=== PATIENT | female | born 1955 | race Caucasian/White ===

== ENCOUNTER 2016-09-24 22:48 | Emergency (ER) | payer OTHER ==
[~2016-09-24] VITALS: Ht 167.6 cm; Wt 136.1 kg
[~2016-09-24 22:48] MED LIST: ADVAIR DISKUS 21 DSK INH; ALBUTEROL SULFAT3 M1 INH; ATORVASTATIN CA10 MG PO; ATORVASTATIN CA20 MG PO; BACTRIM DS 8001 TAB PO; BENADRYL ALLERG25 M1 PO; BISACODYL10 MG PR; CALCIUM CARBO1250 MG PO; CALCIUM500 MG PO; CEPHALEXIN500 MG PO; CLOPIDOGREL75 MG PO; FLEET ENEMA 131 UNIT PR; FUROSEMIDE40 MG PO; HUMULIN N KW100 U/ML SC; LEVEMIR 10100 UNITS/ SC; LEVEMIR100 U/ML SC; LIORESAL 10MG T10 MG PO; LISINOPRIL HCTZ1 TAB PO; LISINOPRIL20 MG PO; LYRICA150 MG PO; MASON NATURAL325 MG PO; MILK OF MAGNESI30 ML PO; MUCINEX1200 MG PO; MULTIVITAMIN1 TAB PO; NOVOLOG 10300 UNITS/ SC; NOVOLOG100 U/ML SC; OMEPRAZOLE D/R20 MG PO; OMEPRAZOLE40 MG PO; OXYCODONE HCL15 MG PO; OXYCODONE HYDRO15 MG PO; OXYCONTIN (MONO40 MG PO; OXYCONTIN20 MG PO; POLYTRIM O200 GTT/BO OPH; POTASSIUM CHLO10 ME1 PO; PRAMIPEXOLE D0.25 MG PO; PRILOSEC40 MG PO; PROAIR HFA0.09 MG/Ac INH; RIFAMPIN300 MG PO; SAVELLA25 MG PO; SENNA CON/DOCUS1 TAB PO; TYLENOL ARTHRI650 MG PO; VANCOMYCIN HYDRO1 GM IV; VICODIN5-300 PO; VITAMIN D50000 IU PO; ZOFRAN 8MG8 MG PO
[2016-09-24 23:32] VITALS: BP 175/72
--- NOTE | 2016-09-25 00:18 | ED SKIN/ALLERGY COMPLAINT ---
History of Present Illness General Chief Complaint: General Adult Stated Complaint: SKIN TEAR Source: patient Exam Limitations: no limitations Vital Signs & Intake/Output Vital Signs & Intake/Output Vital Signs Date Time Temp Pulse Resp B/P Pulse O2 O2 Flow FiO2 Ox Delivery Rate 09/24 2332 95.7 80 16 175/72 96 Room Air ED Intake and Output 09/25 0000 09/24 1200 Intake Total Output Total Balance Patient 300 lb Weight Allergies Coded Allergies: MDX - DT (diphtheria toxoid - tetan (From TETANUS AND DIPHTHERIA TOXOIDS A...) ( Severe, SWELLING/HIVES 08/17/15) MDX - HHaj-XtuU-NXW (Pediarix) (From TETANUS AND DIPHTHERIA TOXOIDS A...) ( Severe, SWELLING/HIVES 08/17/15) MDX - DTap-IPV (Kinrix) (From TETANUS AND DIPHTHERIA TOXOIDS A...) (Severe, SWELLING/HIVES 08/17/15) MDX - DTap-IPV/Hib (Pentacel) (From TETANUS AND DIPHTHERIA TOXOIDS A...) (Severe , SWELLING/HIVES 08/17/15) MDX - DTap/Hib (TriHIBit) (From TETANUS AND DIPHTHERIA TOXOIDS A...) (Severe, SWELLING/HIVES 08/17/15) MDX - Dtap (Daptacel, Infanrix, Tri (From TETANUS AND DIPHTHERIA TOXOIDS A...) ( Severe, SWELLING/HIVES 08/17/15) MDX - Insulin Human Regular (From HUMULIN R) (Severe, GI DISTRESS 08/17/15) PER PT. MDX - Nsaid (Nsaid) (Severe, SWELLING, HIVES, THROAT CLOSING 08/17/15) MDX - Td (Decavac) (From TETANUS AND DIPHTHERIA TOXOIDS A...) (Severe, SWELLING/ HIVES 08/17/15) MDX - Tdap (Boostrix, Adacel) (From TETANUS AND DIPHTHERIA TOXOIDS A...) (Severe , SWELLING/HIVES 08/17/15) MDX - Tetanus Toxoid (From TETANUS AND DIPHTHERIA TOXOIDS A...) (Severe, SWELLING/HIVES 08/17/15) MDX - Aspirin (UNKNOWN 08/17/15) MDX - Bee Venom (BEE VENOM) (UNKNOWN 01/17/16) MDX - Penicillin G (From Penicillin G Potassium) (ANAPHYLAXIS 08/17/15) MDX - Prednisone (PREDNISONE) (UNKNOWN 08/17/15) Reconcile Medications Acetaminophen (Tylenol Arthritis) [address] 1 TAB PO Q4H PRN PAIN/TEMP>101 ( Reported) Albuterol Sulfate 3 ML NEB 3 ML INH 4 TIMES/DAY DYSPNEA (Reported) Albuterol Sulfate (Proair Hfa) 0.09 MG/Actuation RADHA 1-2 PUFF INH Q6H PRN SOB/ WHEEZE (Reported) Atorvastatin Calcium (Lipitor) 20 MG TABLET 1 TAB PO DAILY CHOLESTEROL ( Reported) Baclofen (Lioresal) 10 MG TABLET 1 TAB PO TID MUSCLE SPASMS (Reported) Bisacodyl 10 MG SUP 1 SUPP [place] PRN CONSTIPATION (Reported) Calcium Carbonate 500 MG CALCIUM (1,250 MG) TABLET 1 TAB PO DAILY SUPPLEMENT (Reported) CLOPIDOGREL BISULFATE (Clopidogrel) 75 MG TABLET 1 TAB PO Q48 BLOOD THINNER ( Reported) DIPHENHYDRAMINE HCL (Benadryl) 25 MG CAPSULE 1 CAP PO Q6H PRN ITCHING ( Reported) Docusate Sodium/Senna (Senna S) 50 MG/8.6 MG TAB 1 TAB PO BID CONSTIPATION ( Reported) ERGOCALCIFEROL (VITAMIN D2) (Vitamin D2) 50,000 UNIT CAPSULE 1 CAP PO ONCE A WEEK SUPPLEMENT (Reported) Ferrous Sulfate 325 MG (65 MG IRON) TABLET 1 TAB PO BID SUPPLEMENT (Reported) Fleet Enema (Fleet Enema 135 Ml) 19 GRAM-7 GRAM/118 ML ENEMA 1 UNIT [place] DAILY NEEDED PRN CONSTIPATION (Reported) FLUTICASONE/SALMETEROL (Advair 250-50 Diskus) 250 MCG-50 MCG/DOSE BLST.W.DEV 1 PUFF INH BID ASTHMA (Reported) Furosemide 40 MG TABLET 1 TAB PO DAILY DIURETIC (Reported) Insulin Aspart, Recombinant (Novolog) 100 U/ML JOEL 0 UNITS SC TIDAC/HS GLUCOSE CONTROL MEAL TIME SLIDING SCALE BLOOD SUGAR # OF UNITS < 80 TAKE GLUCOSE 80-150 8 UNITS 151-200 10 UNITS 201-250 12 UNITS 251-300 14 UNITS 301-350 16 UNITS 351-400 18 UNITS >400 20 UNITS and call MD BED TIME SCALE <251 NO INSULIN 251-300 2 UNITS 301-350 3 UNITS 351-400 4 UNITS Insulin Detemir (Levemir) 100 UNIT/ML VIAL 40 UNITS SC BID DIABETES Lisinopril 20 MG TABLET 1 TAB PO DAILY BP (Reported) Magnesium Hydroxide (Milk Of Magnesia 30ML) 400 MG/5 ML ORAL.SUSP 30 ML PO DAILY NEEDED PRN CONSTIPATION (Reported) IF NO BM FOR 3 DAYS MILNACIPRAN HCL (Savella) 25 MG TABLET 1 TAB PO BID FIBROMYALGIA (Reported) Multivitamin (Multiple Vitamins) 1 EACH TABLET 1 TAB PO DAILY SUPPLEMENT ( Reported) Omeprazole (Prilosec) 40 MG ECC 1 TAB PO BID GERD (Reported) Ondansetron (Zofran 8MG) 8 MG TABLET 1 TAB PO SEE ADMIN CRITERIA PRIOR TO IV (Reported) OXYCODONE HCL (Oxycodone HCl) 15 MG TABLET 1 TAB PO AT BEDTIME PAIN (Reported ) Reason to Stop at ADM: CHANGED TO IV DILAUDID Oxycodone HCL (Oxycontin (Monograph Only)) 40 MG TAB.ER.12H 1 TAB PO BID PAIN (Reported) Reason to Stop at ADM: CHANGED TO IV DILAUDID Oxycodone Hydrochloride 15 MG TAB 1 TAB PO Q4P PRN PAIN (Reported) Please hold for sedation and consider using this PRN if the pain is well controlled. Polytrim (Polytrim Eye Drops) 200 GTT/BOT GTT 1 GTT OPH Q6 CORNEAL ABRASION Potassium Chloride 10 MEQ TABLET.ER 1 TAB PO DAILY SUPPLEMENT (Reported) PRAMIPEXOLE DI-HCL (Pramipexole Dihydrochloride) 0.25 MG TABLET 1 TAB PO BID RESTLESS LEGS SYNDROME (Reported) Pregabalin (Lyrica) 150 MG CAPSULE 1 CAP PO TID FIBROMYALGIA (Reported) Rifampin 300 MG CAPSULE 1 CAP PO BID INFECTION (Reported) VANCOMYCIN HCL (Vancomycin Hydrochloride) 1 GRAM VIAL 1,000 MG IV DAILY INFECTION MIX IN 250 MLS OF NORMAL SALINE AND RUN OVER 4 HOURS Triage Note: 61yo FEMALE TO TRIAGE W/CO SKIN TEAR TO R FOREARM SP CATCHING IT ON CARSEAT TONITE. Triage Nurses Notes Reviewed? yes HPI: THIS PATIENT is a 61-year-old female with past medical history diabetes presented to the emergency department today for evaluation of a left forearm skin tear. The patient reported that she was putting seatback at her car fell forward scraping her arm. She reported that she is having 7 out of 10, throbbing, aching pain in her forearm which is nonradiating and constant. It is worse with palpation. No palliative factors. The patient denied being on any blood thinners. He denied any wrist or elbow pain. No numbness or tingling in her extremity. (YAS LEES PA-C) Past History Travel History Traveled to [place] past 21 day No Medical History Any Pertinent Medical History? 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 No (YAS LEES PA-C) Review of Systems Review of Systems Constitutional: Reports: no symptoms. EENTM: Reports: no symptoms. Respiratory: Reports: no symptoms. Cardiovascular: Reports: no symptoms. GI: Reports: no symptoms. Musculoskeletal: Reports: no symptoms. Skin: Reports: see HPI. Neurological/Psychological: Reports: no symptoms. All Other Systems: Reviewed and Negative (YAS LEES PA-C) Physical Exam Physical Exam General Appearance: well developed/nourished, no apparent distress, alert, awake Comments: Well-developed well-nourished person in no acute distress HEENT: Head normocephalic, moist mucous membranes Neck: Supple, no lymphadenopathy Back: Normal inspection Respiratory: No respiratory distress. Speaking in full sentences Extremities: No edema, full range of motion Neuro: Alert and oriented x3 Psych: Mood affect normal, normal memory normal judgment. Skin: Warm and dry, no rash on exposed skin. Approximately 3.5 cm greatest diameter skin tear to the left forearm with no surrounding erythema or edema. Mild amount of stranding ecchymosis. No active bleeding. Tender to palpation (YAS LEES PA-C) Progress Differential Diagnosis: abscess/cellulitis, contact dermatitis, SKIN LACERATION, SKIN TEAR, SKIN AVULSION Plan of Care: This patient is a 61-year-old female who presented to the emergency department today for evaluation of the skin tear. Skin tear noted to the left forearm. The wound was prepped with Betadine and irrigated extensively with normal saline. 4 Steri-Strips were applied to the wound to secure the skin flap. Sterile dressing was applied. Patient tolerated the procedure well. No signs of infection. Stable for discharge home. (YAS LEES PA-C) Departure Departure Disposition: HOME OR SELF CARE Condition: Stable Clinical Impression Primary Impression: Skin tear Referrals: JENNIFER JENKINS,BREANNA Murphy (PCP/Family) Additional Instructions: Keep the wound site clean and dry. Let the Steri-Strips fall off on their own. Follow-up with your primary care physician. Return for any worsening symptoms or concerns. Departure Forms: Customer Survey General Discharge Information (YAS LEES PA-C) PA/REPAIR SPECIALIST Co-Sign Statement Statement: ED Attending supervision documentation- [] I saw and evaluated the patient. I have also reviewed all the pertinent lab results and diagnostic results. I agree with the findings and the plan of care as documented in the PA's/REPAIR SPECIALIST's documentation. x] I have reviewed the ED Record and agree with the PA's/REPAIR SPECIALIST's documentation. [] Additions or exceptions (if any) to the PAs/REPAIR SPECIALIST's note and plan are summarized below: [] (BROOKS JENKINS,TANJA Zendejas)
== END 2016-09-25 00:31 ==
LOC: ERH 22:48
DX: S51.812A Laceration without foreign body of left forearm, initial encounter (principal); X58.XXXA Exposure to other specified factors, initial encounter
CPT/HCPCS: 99282

== ENCOUNTER 2016-11-29 22:26 | Emergency (ER) | payer OTHER ==
[~2016-11-29] VITALS: Ht 170.2 cm; Wt 158.8 kg
--- NOTE | 2016-11-29 22:36 | ED GI/GU/ABDOMINAL COMPLAINT ---
History of Present Illness General Chief Complaint: Nausea, Vomiting, Diarrhea Stated Complaint: DIARRHEA Source: patient Exam Limitations: no limitations Vital Signs & Intake/Output Vital Signs & Intake/Output Vital Signs Date Time Temp Pulse Resp B/P B/P Pulse O2 O2 Flow FiO2 Mean Ox Delivery Rate 11/29 2236 97.1 77 20 126/71 95 Room Air ED Intake and Output 11/30 0000 05 1200 Intake Total Output Total Balance Patient 350 lb Weight Allergies Coded Allergies: Haemophilus B polysaccharide conj w/tetanus toxoid (From HIBERIX (PF)) (Severe, SWELLING/HIVES 11/29/16) NSAIDS (Non-Steroidal Anti-Inflamma (Severe, THROAT CLOSING/SWELLING/HIVES 11/29) diphtheria,pertussis (acell),tetanu (From PEDIARIX) (Severe, SWELLING/HIVES 08/17) haemophilus b polysac conj-tetanus tox (15mos-4yr) (From HIBERIX (PF)) (Severe, SWELLING/HIVES 11/29/16) hepatitis B virus vaccine, recombin (From PEDIARIX) (Severe, SWELLING/HIVES 08/17) penicillin G (Severe, ANAPHYLAXIS 11/29/16) tetanus and diphtheria toxoids (Severe, SWELLING/HIVES 11/29/16) aspirin (UNKNOWN 11/29/16) bee venom protein (honey bee) (UNKNOWN 11/29/16) prednisone (UNKNOWN 11/29/16) insulin regular (From HUMULIN R U-100) (Severe, GI DISTRESS 11/29/16) Reconcile Medications Acetaminophen (Tylenol Arthritis) [address] 1 TAB PO Q4H PRN PAIN/TEMP>101 ( Reported) Albuterol Sulfate 3 ML NEB 3 ML INH 4 TIMES/DAY DYSPNEA (Reported) Albuterol Sulfate (Proair Hfa) 0.09 MG/Actuation RADHA 1-2 PUFF INH Q6H PRN SOB/ WHEEZE (Reported) Atorvastatin Calcium (Lipitor) 20 MG TABLET 1 TAB PO DAILY CHOLESTEROL ( Reported) Baclofen (Lioresal) 10 MG TABLET 1 TAB PO TID MUSCLE SPASMS (Reported) Bisacodyl 10 MG SUP 1 SUPP [place] PRN CONSTIPATION (Reported) Calcium Carbonate 500 MG CALCIUM (1,250 MG) TABLET 1 TAB PO DAILY SUPPLEMENT (Reported) CLOPIDOGREL BISULFATE (Clopidogrel) 75 MG TABLET 1 TAB PO Q48 BLOOD THINNER ( Reported) DIPHENHYDRAMINE HCL (Benadryl) 25 MG CAPSULE 1 CAP PO Q6H PRN ITCHING ( Reported) Diphenoxylate HCl/Atropine (Lomotil 2.5-0.025 MG Tablet) 2.5 MG-0.025 MG TABLET 1-2 TAB PO 4 TIMES/DAY diarrhea twenty...[id number] Docusate Sodium/Senna (Senna S) 50 MG/8.6 MG TAB 1 TAB PO BID CONSTIPATION ( Reported) ERGOCALCIFEROL (VITAMIN D2) (Vitamin D2) 50,000 UNIT CAPSULE 1 CAP PO ONCE A WEEK SUPPLEMENT (Reported) Ferrous Sulfate 325 MG (65 MG IRON) TABLET 1 TAB PO BID SUPPLEMENT (Reported) Fleet Enema (Fleet Enema 135 Ml) 19 GRAM-7 GRAM/118 ML ENEMA 1 UNIT [place] DAILY NEEDED PRN CONSTIPATION (Reported) FLUTICASONE/SALMETEROL (Advair 250-50 Diskus) 250 MCG-50 MCG/DOSE BLST.W.DEV 1 PUFF INH BID ASTHMA (Reported) Furosemide 40 MG TABLET 1 TAB PO DAILY DIURETIC (Reported) Insulin Aspart, Recombinant (Novolog) 100 U/ML JOEL 0 UNITS SC TIDAC/HS GLUCOSE CONTROL MEAL TIME SLIDING SCALE BLOOD SUGAR # OF UNITS < 80 TAKE GLUCOSE 80-150 8 UNITS 151-200 10 UNITS 201-250 12 UNITS 251-300 14 UNITS 301-350 16 UNITS 351-400 18 UNITS >400 20 UNITS and call MD BED TIME SCALE <251 NO INSULIN 251-300 2 UNITS 301-350 3 UNITS 351-400 4 UNITS Insulin Detemir (Levemir) 100 UNIT/ML VIAL 40 UNITS SC BID DIABETES Lisinopril 20 MG TABLET 1 TAB PO DAILY BP (Reported) Magnesium Hydroxide (Milk Of Magnesia 30ML) 400 MG/5 ML ORAL.SUSP 30 ML PO DAILY NEEDED PRN CONSTIPATION (Reported) IF NO BM FOR 3 DAYS MILNACIPRAN HCL (Savella) 25 MG TABLET 1 TAB PO BID FIBROMYALGIA (Reported) Multivitamin (Multiple Vitamins) 1 EACH TABLET 1 TAB PO DAILY SUPPLEMENT ( Reported) Omeprazole (Prilosec) 40 MG ECC 1 TAB PO BID GERD (Reported) Ondansetron (Zofran 8MG) 8 MG TABLET 1 TAB PO SEE ADMIN CRITERIA PRIOR TO IV (Reported) OXYCODONE HCL (Oxycodone HCl) 15 MG TABLET 1 TAB PO AT BEDTIME PAIN (Reported ) Reason to Stop at ADM: CHANGED TO IV DILAUDID Oxycodone HCL (Oxycontin (Monograph Only)) 40 MG TAB.ER.12H 1 TAB PO BID PAIN (Reported) Reason to Stop at ADM: CHANGED TO IV DILAUDID Oxycodone Hydrochloride 15 MG TAB 1 TAB PO Q4P PRN PAIN (Reported) Please hold for sedation and consider using this PRN if the pain is well controlled. Polytrim (Polytrim Eye Drops) 200 GTT/BOT GTT 1 GTT OPH Q6 CORNEAL ABRASION Potassium Chloride 10 MEQ TABLET.ER 1 TAB PO DAILY SUPPLEMENT (Reported) PRAMIPEXOLE DI-HCL (Pramipexole Dihydrochloride) 0.25 MG TABLET 1 TAB PO BID RESTLESS LEGS SYNDROME (Reported) Pregabalin (Lyrica) 150 MG CAPSULE 1 CAP PO TID FIBROMYALGIA (Reported) Rifampin 300 MG CAPSULE 1 CAP PO BID INFECTION (Reported) VANCOMYCIN HCL (Vancomycin Hydrochloride) 1 GRAM VIAL 1,000 MG IV DAILY INFECTION MIX IN 250 MLS OF NORMAL SALINE AND RUN OVER 4 HOURS Triage Nurses Notes Reviewed? yes ? n Is pt currently ? No Onset: Gradual Timing: recent history Quality/Severity: moderate Location: generalized abdomen Radiation: no radiation Activities at Onset: none Prior Abdominal Problems: none Modifying Factors: Worsens With: defecating. Associated Symptoms: nausea/vomiting HPI: 61 yo woman with type i diabetes presents with 7 days of diarrhea, no vomiting, no abdominal pain, no fever. She notes, "Anything I eat just passes right through me." She does not recall any suspicious food ingestions, well water, or recent antibiotics. She is otherwise well. Past History Travel History Traveled to [place] past 21 day No Medical History Any Pertinent Medical History? 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 No Review of Systems Review of Systems Constitutional: Reports: no symptoms. EENTM: Reports: no symptoms. Respiratory: Reports: no symptoms. Cardiovascular: Reports: no symptoms. GI: Reports: no symptoms. Genitourinary: Reports: no symptoms. Musculoskeletal: Reports: no symptoms. Skin: Reports: no symptoms. Neurological/Psychological: Reports: no symptoms. Hematologic/Endocrine: Reports: no symptoms. Immunologic/Allergic: Reports: no symptoms. All Other Systems: Reviewed and Negative Physical Exam Physical Exam General Appearance: well developed/nourished, mild distress Head: atraumatic, normal appearance Eyes: Bilateral: normal appearance. Ears, Nose, Throat, Mouth: hearing grossly normal Neck: normal inspection, supple, full range of motion, normal alignment Respiratory: normal breath sounds, chest non-tender, no respiratory distress Cardiovascular: regular rate/rhythm Gastrointestinal: normal bowel sounds, soft, non-tender, no tenderness to firm palpation Back: normal inspection Extremities: normal range of motion Neurologic/Psych: no motor/sensory deficits, awake, alert, oriented x 3 Skin: intact, normal color, warm/dry Core Measures ACS in differential dx? No Severe Sepsis Present: No Septic Shock Present: No Progress Differential Diagnosis: viral vs bacterial diarrhea. Plan of Care: Orders Procedure Date/time Status LIPASE 11/30 2231 Complete HEPATIC FUNCTION PANEL 11/30 2231 Complete CBC WITHOUT DIFFERENTIAL 11/30 2231 Complete BASIC METABOLIC PANEL 11/30 2231 Complete AMYLASE 11/30 2231 Complete Current Medications Sig/Vince Start time Last Medication Dose Stop Time Status Admin Diphenoxylate HCl/ 5 MG ONCE ONE 11/30 0130 UNVr Atropine 11/30 0131 (Lomotil) Laboratory Tests 11/29/16 2345: Anion Gap 10, Estimated GFR 33 L, BUN/Creatinine Ratio 20.0, Glucose 86, Calcium 8.5, Total Bilirubin 0.6, Direct Bilirubin 0.3, AST 38 H, ALT 45, Alkaline Phosphatase 188 H, Total Protein 6.4, Albumin 3.5, Amylase < 30 L, Lipase < 10 L, CBC w Diff NO MAN DIFF REQ, RBC 3.69 L, MCV 84.5, MCH 28.6, RDW 13.8, MPV 8.4, Gran % 42.6, Lymphocytes % 43.2, Monocytes % 9.5 H, Eosinophils % 4.3, Basophils % 0.4, Absolute Granulocytes 1.5, Absolute Lymphocytes 1.5, Absolute Monocytes 0.3, Absolute Eosinophils 0.2, Absolute Basophils 0, PUBS MCHC 33.9 Initial ED EKG: none Departure Departure Disposition: HOME OR SELF CARE Condition: Stable Clinical Impression Primary Impression: Diarrhea Referrals: JENNIFER JENKINS,BREANNA Murphy (PCP/Family) Departure Forms: Customer Survey General Discharge Information Prescriptions: Current Visit Scripts Diphenoxylate HCl/Atropine (Lomotil 2.5-0.025 MG Tablet) 1-2 TAB PO 4 TIMES/DAY #20 TAB twenty...[id number] Comments 11/30/16, 1:31am... pt feeling well after iv fluids.... labs benign... pt safe for discharge... likely viral gastro... will give trial of lomotil... encouraged close follow up.
[2016-11-29 23:53] LABS: ABSOLUTE BASOPHIL COUNT 0 /CUMM (0.0-0.2); ABSOLUTE EOSINOPHIL COUNT 0.2 /CUMM (0.0-0.7); ABSOLUTE GRANULOCYTE CT 1.5 /CUMM (1.4-6.5); ABSOLUTE LYMPH COUNT 1.5 /CUMM (1.2-3.4); ABSOLUTE MONOCYTE COUNT 0.3 /CUMM (0.10-0.60); BASOPHIL % 0.4 % (0.0-2.0); EOSINOPHIL % 4.3 % (0-5); GRANULOCYTE % 42.6 % (42.2-75.2); HEMATOCRIT 31.1 % (37-47); MEAN CORPUSCULAR HGB 28.6 PG (27.0-31.0); MEAN CORPUSCULAR HGB CONC 33.9 G/DL (33.0-37.0); MEAN CORPUSCULAR VOLUME 84.5 FL (81.0-99.0); MEAN PLATELET VOLUME 8.4 FL (7.4-10.4); PLATELET COUNT 140 /CUMM (130-400); RBC DISTRIBUTION WIDTH 13.8 % (11.5-14.5); RED BLOOD CELL CT 3.69 /CUMM (4.20-5.40); WHITE BLOOD CELL COUNT 3.5 /CUMM (4.8-10.8)
[2016-11-30] MEDS ORDERED: LOMOTIL 2.5-0.1 EACH PO (01:30)
[2016-11-30 01:45] VITALS: BP 147/65
== END 2016-11-30 01:54 ==
LOC: ERH 22:26
PROVIDERS: Pediatrics
DX: R19.7 Diarrhea, unspecified (principal)

== ENCOUNTER → 2018-01-12 | Day surgery (SDC) | payer OTHER ==
[~2018-01-12] VITALS: Ht 170.2 cm; Wt 142.9 kg
[~2018-01-12] MED LIST changes: +8 HOUR650 MG PO; +ADVAIR 250-501 EACH INH; +CYCLOBENZAPRINE10 M1 PO; +HUMULIN N100 UNIT/1 SC; +LOMOTIL 2.5-0.1 EACH PO; +LYRICA150 M1 PO; +MIRAPEX0.25 M1 PO; +MUCINEX1200 M1 PO; +NOVOLOG100 UNIT/2 SC; +OMEPRAZOLE20 M2 PO; +OXYCODONE HCL10 M2 PO
--- NOTE | 2018-01-12 08:38 | Operative Report ---
Operative/Inv Procedure Report Surgery Date: 01/12/18 Name of Procedure: Complex Cataract extraction with intraocular lens implantation left eye Pre-Operative Diagnosis: Age-related cataract and abnormal pupil left eye Post-Operative Diagnosis: Same Estimated Blood Loss: none Surgeon/Deputy Director: Trevor JENKINS,George Murphy Anesthesia: local monitored anesthesi Complications: None Operative/Procedure Note Note: The risks, benefits, and alternatives to surgery were discussed at length with the patient. Informed consent was obtained. The patient was brought to the operating room where the left eye was prepped and draped in the normal sterile fashion. A speculum was placed on the left eye with good exposure. The axis of the limbal relaxing incision was marked. Using a cole blade at 600 depth, an incision spanning 40 degrees was made without complication. A limbal relaxing incision of equal length and depth was made 180 away. A stab incision was made using a paracentesis blade. Intracameral lidocaine was placed. Viscoelastic was used to form the anterior chamber. A Malyugin ring was placed to expand the pupil with good exposure. A clear corneal incision was made using keratome blade. A continuous curvilinear capsulorrhexis was made using a cystotome needle followed by Utrata forceps. There was no extension of the rhexis. Hydrodissection was performed using balanced salt solution. The cataract was removed using a stop and chop technique. Residual cortex was removed using coaxial irrigation and aspiration. The capsule was polished using irrigation and aspiration and the posterior capsule was cleaned using a balanced salt solution jet. There was no residual lens material inside the eye. The capsular bag was reformed using viscoelastic. An intraocular lens ZCBOO of power 24.0 was verified and confirmed. It was loaded into an injector and injected into the eye. The lens was placed entirely within the capsular bag. Viscoelastic was evacuated using irrigation and aspiration. The wounds were stromally hydrated and the eye filled to physiologic pressure using balanced salt solution. Intracameral cefuroxime was placed. Speculum was removed and a shield was placed on the eye. The patient was brought to the recovery area without incident. Instructions were given to follow-up the next day for routine postoperative care.
== END ==
LOC: STS 01:49
DX: H25.89 Other age-related cataract (principal); H21.562 Pupillary abnormality, left eye; E11.9 Type 2 diabetes mellitus without complications; Z79.4 Long term (current) use of insulin; Z86.73 Personal history of transient ischemic attack (TIA), and cerebral infarction without residual deficits; I10 Essential (primary) hypertension; K21.9 Gastro-esophageal reflux disease without esophagitis; J45.909 Unspecified asthma, uncomplicated; G89.29 Other chronic pain
CPT/HCPCS: J2250; V2632

== ENCOUNTER → 2018-02-09 | Day surgery (SDC) | payer OTHER ==
[~2018-02-09] VITALS: Ht 170.2 cm; Wt 142.9 kg
[~2018-02-09] MED LIST changes: +MARI INH
--- NOTE | 2018-02-09 13:11 | Operative Report ---
Operative/Inv Procedure Report Surgery Date: 02/09/18 Name of Procedure: Cataract extraction with intraocular lens implantation right eye Pre-Operative Diagnosis: Age-related cataract right eye Post-Operative Diagnosis: Same Estimated Blood Loss: none Surgeon/Director Regulatory Affairs: Trevor JENKINS,George Murphy Anesthesia: local monitored anesthesi Complications: None Operative/Procedure Note Note: Preoperatively the patient was noted to have 20/70 vision in the right eye . The risks, benefits, and alternatives to surgery were discussed at length with the patient. Informed consent was obtained. The patient was brought to the operating room where the right eye was prepped and draped in the normal sterile fashion. A speculum was placed on the right eye with good exposure. A stab incision was made using a paracentesis blade. Intracameral lidocaine was placed. Viscoelastic was used to form the anterior chamber. A clear corneal incision was made using keratome blade. A continuous curvilinear capsulorrhexis was made using a cystotome needle followed by Utrata forceps. There was no extension of the rhexis. Hydrodissection was performed using balanced salt solution. The cataract was removed using a stop and chop technique. Residual cortex was removed using coaxial irrigation and aspiration. The capsule was polished using irrigation and aspiration and the posterior capsule was cleaned using a balanced salt solution jet. There was no residual lens material inside the eye. The capsular bag was reformed using viscoelastic. An intraocular lens PCBOO of power 23.5 was verified and confirmed. It was loaded into an injector and injected into the eye. The lens was placed entirely within the capsular bag. Viscoelastic was evacuated using irrigation and aspiration. The wounds were stromally hydrated and the eye filled to physiologic pressure using balanced salt solution. Intracameral cefuroxime was placed. Speculum was removed and a shield was placed on the eye. The patient was brought to the recovery area without incident. Instructions were given to follow-up the next day for routine postoperative care.
== END ==
LOC: STS 02:31
DX: H25.9 Unspecified age-related cataract (principal); E11.9 Type 2 diabetes mellitus without complications; Z79.4 Long term (current) use of insulin; I10 Essential (primary) hypertension; Z86.73 Personal history of transient ischemic attack (TIA), and cerebral infarction without residual deficits; K21.9 Gastro-esophageal reflux disease without esophagitis; J45.909 Unspecified asthma, uncomplicated; M79.7 Fibromyalgia
CPT/HCPCS: J2250; V2632